=== PATIENT | female | born 1980 | race Caucasian/White ===

== ENCOUNTER 2019-05-16 00:41 | Emergency (ER) | payer MEDICAID ==
[~2019-05-16] VITALS: Ht 157.5 cm; Wt 64.4 kg
[2019-05-16 00:50] VITALS: BP 100/62
--- NOTE | 2019-05-16 00:51 | NUR ---
PT [facility]AG[facility] BLS TO ER BED 07
--- NOTE | 2019-05-16 00:55 | NUR ---
PT 38 Y/O FEMALE BIBA BLS FOR C/O SOB AND COUGH X 2 WEEKS. PT HAS C/O 7/10 CHEST PAIN PROVOKED SHERIDAN BY COUGH. PT STATES PAIN IS A BURNING SENSATION. PT AAO X4. RESPIRATIONS ARE EVEN AND UNLABORED. WHEEZES NOTED IN BILAT UPPER LOBES UPON EXPIRATION. PT O2 SAT@ 98% ON RA. PT STATES SHE HAS A DECREASE IN APPITITE X 1 WEEK AND NAUSEA. PT DENIES VOMITING OR DIARRHEA. ABD IS SOFT, ROUND, AND NON-TENDER. PT SON AT BEDSIDE. BED LOCKED AND IN LOWEST POSITION. MEDHX: NONE ALLERGIES: PCN.
--- NOTE | 2019-05-16 01:10 | NUR ---
PT RESTING IN BED EYES CLOSED. VSS. RESPIRATIONS ARE EVEN AND UNLABORED. SKIN IS WARM AND DRY TO TOUCH. SON AT BEDSIDE.
--- NOTE | 2019-05-16 02:12 | NUR ---
DR. SEO AT BEDSIDE.
--- NOTE | 2019-05-16 02:25 | NUR ---
FLU SWAB COLLECTED.
--- NOTE | 2019-05-16 02:30 | NUR ---
XRAY AT BEDSIDE.
[2019-05-16] MEDS ORDERED: ACETAMIN/CODEINE 120/12MG-5ML 5 ML UDC PO ONE (02:35)
--- NOTE | 2019-05-16 03:30 | NUR ---
Patient discharged with v/s stable. Written and verbal after care instructions given and explained. Patient alert, oriented and verbalized understanding of instructions. Ambulatory with steady gait. All questions addressed prior to discharge. ID band removed. Patient advised to follow up with PMD. Rx of AZITHROMYCIN, GUAIATUSSIN, PREDNISONE given. Patient educated on indication of medication including possible reaction and side effects. Opportunity to ask questions provided and answered.
[2019-05-16 03:37] VITALS: BP 100/62
== END 2019-05-16 03:30 | disposition home or self-care (01) ==
LOC: MED 00:41
DX: J20.9 Acute bronchitis, unspecified (principal)
CPT/HCPCS: 71045; 87804; 99284; Q0092

== ENCOUNTER 2019-05-23 17:05 | Emergency (ER) | payer MEDICAID ==
[~2019-05-23] VITALS: Ht 160 cm; Wt 61.3 kg
[2019-05-23 17:23] VITALS: BP 109/73
[2019-05-23] MEDS ORDERED: DEXAMETHASONE 10 MG/ML VIAL IM ONE (18:55)
[2019-05-23 19:03] VITALS: BP 128/78
--- NOTE | 2019-05-23 19:04 | NUR ---
Stable VSS Afebrile PA has seen and Dc'd home To exit with script
== END 2019-05-23 19:03 | disposition home or self-care (01) ==
LOC: MED 17:05
DX: J20.9 Acute bronchitis, unspecified (principal); Z88.0 Allergy status to penicillin
CPT/HCPCS: 71045; 96372; 99283; J1100